=== PATIENT | female | born 2000 | race African-American/Black ===

== ENCOUNTER 2020-02-12 13:36 | Emergency (ER) | payer MEDICAID ==
[~2020-02-12] VITALS: Ht 165.1 cm; Wt 114.0 kg
[2020-02-12 14:05] VITALS: BP 141/101
== END 2020-02-12 14:06 | disposition home or self-care (01) ==
LOC: ER 13:36
DX: M79.671 Pain in right foot (principal); Z02.79 Encounter for issue of other medical certificate
CPT/HCPCS: 99281